=== PATIENT | female | born 1975 | race Caucasian/White ===

== ENCOUNTER 2019-03-14 18:39 | Emergency (ER) | payer MEDICAID, OTHER, SELFPAY ==
[~2019-03-14 18:39] MED LIST: NOCURR; QUET50TA PO; SERT100T12 PO
== END 2019-03-14 21:00 | disposition home or self-care (01) ==
LOC: EMS 18:40
DX: F10.129 Alcohol abuse with intoxication, unspecified (principal); F32.9 Major depressive disorder, single episode, unspecified; F20.9 Schizophrenia, unspecified; F17.210 Nicotine dependence, cigarettes, uncomplicated; Z88.0 Allergy status to penicillin

== ENCOUNTER 2019-03-15 17:50 | Inpatient (IN) | payer MEDICAID ==
[~2019-03-15] VITALS: Ht 152.4 cm; Wt 97.0 kg
[2019-03-15 19:08] LABS: BASOPHILS % (AUTO) 0.6 % (0.0-2.0); EOSINOPHILS % (AUTO) 1.6 % (1.0-6.0); HEMATOCRIT 40.6 % (36-46); HEMOGLOBIN 13.1 g/dL (12.0-16.0); LYMPHOCYTES # (AUTO) 2.1 K/uL (1.0-4.8); LYMPHOCYTES % (AUTO) 24.8 % (22.0-44.0); MEAN CORPUSCULAR HEMOGLOBIN 29.5 pg (26.0-34.0); MEAN CORPUSCULAR HGB CONC 32.3 G/dL (31.0-37.0); MEAN CORPUSCULAR VOLUME 91 fL (80-100); MONOCYTES # (AUTO) 0.6 K/uL (0.1-1.0); MONOCYTES % (AUTO) 6.9 % (2.0-9.0); NEUTROPHILS # (AUTO) 5.5 K/uL (1.8-7.7); NEUTROPHILS % (AUTO) 66.1 % (40.0-70.0); PLATELET COUNT (AUTO) 202 K/uL (150-450); RED BLOOD CELL COUNT(AUTO) 4.46 MIL/uL (4.00-5.20)
[2019-03-15 19:16] LABS: ANION GAP 1 mmol/L (8-16); CARBON DIOXIDE 32 mmol/L (22-29); CHLORIDE 106 mmol/L (98-107); CREATININE 0.91 mg/dL (0.60-1.30); GLOMERULAR FILTR. RATE CALC > 60 mL/min (>60); GLUCOSE,RANDOM 126 mg/dL (70-110); POTASSIUM 4.3 mmol/L (3.5-5.1); SODIUM SERUM 139 mmol/L (136-145); UREA NITROGEN, BLOOD 15 mg/dL (7-18)
[2019-03-15 19:32] LABS: ALANINE AMINOTRANSFERASE 19 U/L (12-78); ALBUMIN 3.2 g/dL (3.4-5.0); ALKALINE PHOSPHATASE 65 U/L (46-116); ASPARTATE AMINOTRANSFERASE 20 U/L (15-37); BILIRUBIN,TOTAL 0.4 mg/dL (0.1-1.0); HCG,QUANTITATIVE < 1 mIU/mL (0-6); TOTAL PROTEIN, SERUM 6.6 g/dL (6.4-8.2)
[2019-03-15 20:25] LABS: AMPHET/METH SCREEN,URINE POSITIVE (NEGATIVE); BARBITURATE SCREEN, URINE NEGATIVE (NEGATIVE); BENZODIAZEPINES SCREEN,URINE POSITIVE (NEGATIVE); CANNABINOID SCREEN,URINE NEGATIVE (NEGATIVE); COCAINE SCREEN,URINE NEGATIVE (NEGATIVE); METHADONE SCREEN, URINE NEGATIVE (NEGATIVE); OPIATE SCREEN,URINE NEGATIVE (NEGATIVE)
[2019-03-15 20:28] LABS: PHENCYCLIDINE SCREEN,URINE NEGATIVE (NEGATIVE)
[2019-03-15] MEDS ORDERED: HALOPERIDOL 5 MG TABLET PO PRN (21:00)
[2019-03-15] MEDS ORDERED: ZOLPIDEM TARTRATE 10 MG TABLET PO PRN (21:00)
[2019-03-15] MEDS: OLANZapine 5 MG TABLET PO SCH (21:16)
[2019-03-16 01:16] VITALS: BP 140/82
[2019-03-16 08:10] VITALS: BP 134/78
[2019-03-16 08:37] LABS: CHOL/HDL RATIO 2.4 (3.9-5.7); FREE T4 (FREE THYROXINE) 1.08 ng/dL (0.76-1.46); THYROID STIMULATING HORMONE 2.78 uIU/mL (0.36-3.74)
[2019-03-16] MEDS: OLANZapine 5 MG TABLET PO SCH ×2 (09:05→16:04)
[2019-03-16] MEDS: SERTRALINE HCL 50 MG TABLET PO SCH (09:05)
[2019-03-16 16:08] VITALS: BP 137/80
[2019-03-16] MEDS: NYSTATIN 15 GM POWDER BOTTLE TP SCH (17:00)
[2019-03-17 00:52] VITALS: BP 132/70
[2019-03-17] MEDS: OLANZapine 5 MG TABLET PO SCH ×2 (08:20→16:13)
[2019-03-17] MEDS: SERTRALINE HCL 50 MG TABLET PO SCH (08:20)
[2019-03-17] MEDS: NYSTATIN 15 GM POWDER BOTTLE TP SCH ×2 (08:20→16:13)
[2019-03-17 08:23] VITALS: BP_SYST 139; BP_SYST 154; BP_DIAS 88; BP_DIAS 95
[2019-03-17 16:05] VITALS: BP 141/90
[2019-03-17] MEDS: LORazepam 2 MG TABLET PO PRN (17:14)
[2019-03-18 00:59] VITALS: BP 128/76
[2019-03-18 08:19] VITALS: BP 148/108
[2019-03-18] MEDS: NYSTATIN 15 GM POWDER BOTTLE TP SCH ×2 (08:38→16:22)
[2019-03-18] MEDS: SERTRALINE HCL 50 MG TABLET PO SCH (08:38)
[2019-03-18] MEDS: OLANZapine 5 MG TABLET PO SCH ×2 (08:38→16:22)
[2019-03-18] MEDS: LORazepam 2 MG TABLET PO PRN (09:29)
[2019-03-18 11:45] VITALS: BP 152/96
[2019-03-18 15:11] VITALS: BP 161/106
[2019-03-18] MEDS ORDERED: NICOTINE 14 MG/24 HOUR PATCH TD PRN (15:15)
[2019-03-18] MEDS ORDERED: PETROLATUM,WHITE 28 GM JELLY TP PRN (15:15)
[2019-03-18] MEDS ORDERED: GuaiFENesin/D-METHORPHAN [SUGAR-FREE] 200-20MG/10 ML SYRUP UDCUP PO PRN (15:15)
[2019-03-18] MEDS ORDERED: AmLODIPine BESYLATE 5 MG TABLET PO SCH (15:15)
[2019-03-18] MEDS ORDERED: ONDANSETRON HCL 4 MG TABLET PO PRN (15:15)
[2019-03-18] MEDS ORDERED: DOCUSATE SODIUM 100 MG CAPSULE PO PRN (15:15)
[2019-03-18] MEDS ORDERED: ALBUTEROL SULFATE HFA 90 MCG/PUFF 8 GM INHALER IH PRN (15:15)
[2019-03-18] MEDS ORDERED: ACETAMINOPHEN 325 MG TABLET PO PRN (15:15)
[2019-03-18] MEDS ORDERED: MAGNESIUM HYDROXIDE SUSPENSION 30 ML UDCUP PO PRN (15:15)
[2019-03-18] MEDS ORDERED: LOPERAMIDE HCL 2 MG CAPSULE PO PRN (15:15)
[2019-03-18] MEDS ORDERED: MAG HYDROX/AL HYDROX/SIMETH ES 30 ML SUSPENSION UDCUP PO PRN (15:15)
[2019-03-18] MEDS ORDERED: CloNIDine HCL 0.1 MG TABLET PO PRN (15:15)
[2019-03-18] MEDS ORDERED: IBUPROFEN 400 MG TABLET PO PRN (15:15)
[2019-03-18 16:03] VITALS: BP 140/80
[2019-03-18] MEDS ORDERED: SERT50TA12 PO (18:33)
[2019-03-18] MEDS ORDERED: AMLO5TAB9 PO (18:33)
[2019-03-18] MEDS ORDERED: OLAN5TAB2 PO (18:33)
[2019-03-18] MEDS ORDERED: NYST15PO3 TP (18:33)
== END 2019-03-18 19:30 | disposition home or self-care (01) | DRG 750 ==
LOC: EMS 17:51 → B2S 22:30
PROVIDERS: ADMIT Psychiatry & Neurology Psychiatry; ATTEND Psychiatry & Neurology Psychiatry
DX: F25.1 Schizoaffective disorder, depressive type (principal); R45.851 Suicidal ideations; Z59.0 Homelessness; F10.10 Alcohol abuse, uncomplicated; R03.0 Elevated blood-pressure reading, without diagnosis of hypertension; F19.10 Other psychoactive substance abuse, uncomplicated; F17.210 Nicotine dependence, cigarettes, uncomplicated; Z79.899 Other long term (current) drug therapy; Z91.5 Personal history of self-harm; Z88.0 Allergy status to penicillin; Z71.51 Drug abuse counseling and surveillance of drug abuser; Z71.41 Alcohol abuse counseling and surveillance of alcoholic
CPT/HCPCS: 83036; 84439; 84443; G0480

== ENCOUNTER 2019-04-01 12:03 | Emergency (ER) | payer MEDICAID ==
[~2019-04-01] VITALS: Ht 162.6 cm; Wt 136.0 kg
[~2019-04-01 12:03] MED LIST changes: +AMLO5TAB9 PO; -NOCURR; +OLAN5TAB2 PO; -QUET50TA PO; -SERT100T12 PO; +SERT50TA12 PO
[2019-04-01] MEDS ORDERED: BUSP10TA23 PO (12:30)
[2019-04-01] MEDS ORDERED: HYDR50CA10 PO (12:30)
[2019-04-01] MEDS ORDERED: TOPI25 PO (12:30)
[2019-04-01] MEDS ORDERED: TRAZ-220 PO (12:30)
[2019-04-01 12:47] LABS: BASOPHILS % (AUTO) 0.8 % (0.0-2.0); EOSINOPHILS % (AUTO) 2.9 % (1.0-6.0); HEMATOCRIT 41.5 % (36-46); HEMOGLOBIN 13.6 g/dL (12.0-16.0); LYMPHOCYTES # (AUTO) 1.9 K/uL (1.0-4.8); LYMPHOCYTES % (AUTO) 22.7 % (22.0-44.0); MEAN CORPUSCULAR HEMOGLOBIN 29.9 pg (26.0-34.0); MEAN CORPUSCULAR HGB CONC 32.7 G/dL (31.0-37.0); MEAN CORPUSCULAR VOLUME 91 fL (80-100); MONOCYTES # (AUTO) 0.5 K/uL (0.1-1.0); MONOCYTES % (AUTO) 5.8 % (2.0-9.0); NEUTROPHILS # (AUTO) 5.6 K/uL (1.8-7.7); NEUTROPHILS % (AUTO) 67.8 % (40.0-70.0); PLATELET COUNT (AUTO) 255 K/uL (150-450); RED BLOOD CELL COUNT(AUTO) 4.55 MIL/uL (4.00-5.20); RED CELL DISTRIBUTION WIDTH 14.9 % (11.5-14.5)
[2019-04-01 12:58] LABS: ANION GAP 8 mmol/L (8-16); CALCIUM, TOTAL 8.8 mg/dL (8.8-10.5); CARBON DIOXIDE 25 mmol/L (22-29); CHLORIDE 107 mmol/L (98-107); CREATININE 0.85 mg/dL (0.60-1.30); GLOMERULAR FILTR. RATE CALC > 60 mL/min (>60); GLUCOSE,RANDOM 112 mg/dL (70-110); POTASSIUM 4.1 mmol/L (3.5-5.1); SODIUM SERUM 140 mmol/L (136-145); UREA NITROGEN, BLOOD 22 mg/dL (7-18)
[2019-04-01] MEDS: DiphenhydrAMINE HCL 50 MG/ML VIAL IM ONE (13:14)
[2019-04-01 13:16] LABS: ALANINE AMINOTRANSFERASE 21 U/L (12-78); ALBUMIN 3.6 g/dL (3.4-5.0); ALKALINE PHOSPHATASE 73 U/L (46-116); ASPARTATE AMINOTRANSFERASE 20 U/L (15-37); BILIRUBIN,TOTAL 0.2 mg/dL (0.1-1.0); HCG,QUANTITATIVE < 1 mIU/mL (0-6); TOTAL PROTEIN, SERUM 7.4 g/dL (6.4-8.2)
[2019-04-01 13:29] LABS: AMPHET/METH SCREEN,URINE NEGATIVE (NEGATIVE); BARBITURATE SCREEN, URINE NEGATIVE (NEGATIVE); BENZODIAZEPINES SCREEN,URINE POSITIVE (NEGATIVE); CANNABINOID SCREEN,URINE NEGATIVE (NEGATIVE); COCAINE SCREEN,URINE NEGATIVE (NEGATIVE); METHADONE SCREEN, URINE NEGATIVE (NEGATIVE); OPIATE SCREEN,URINE NEGATIVE (NEGATIVE); PHENCYCLIDINE SCREEN,URINE NEGATIVE (NEGATIVE)
[2019-04-01 15:14] VITALS: BP 127/74
== END 2019-04-01 15:30 | disposition home or self-care (01) ==
LOC: EMS 12:06
DX: F41.9 Anxiety disorder, unspecified (principal); F69 Unspecified disorder of adult personality and behavior; F17.210 Nicotine dependence, cigarettes, uncomplicated; F32.9 Major depressive disorder, single episode, unspecified; F20.9 Schizophrenia, unspecified; Z90.89 Acquired absence of other organs; Z90.710 Acquired absence of both cervix and uterus; Z88.0 Allergy status to penicillin
CPT/HCPCS: 36415; 80053; 80307; 84702; 85025; 96372; 99284; 99406; G0480; J1200